=== PATIENT | female | born 1980 | race Hispanic/Latino ===

== ENCOUNTER 2017-09-26 21:00 | Emergency (ER) | payer MEDICAID ==
[2017-09-26 21:38] LABS: APPEARANCE,URINE Clear (CLEAR); BILIRUBIN,URINE Negative (NEGATIVE); COLOR,URINE Yellow (YELLOW); GLUCOSE, URINE (UA) Negative (NEGATIVE); KETONES,URINE Negative (NEGATIVE); LEUKOCYTE ESTERASE ,URINE Negative (NEGATIVE); NITRATE,URINE Negative (NEGATIVE); OCCULT BLOOD,URINE Negative (NEGATIVE); PH,URINE 6.5 (5.0-8.0); PROTEIN,URINE Negative (NEGATIVE); UROBILINOGEN,URINE 0.2 mg/dL (0.2-1.0)
== END 2017-09-26 22:08 | disposition home or self-care (01) ==
LOC: EDH 21:00
DX: O34.81 Maternal care for other abnormalities of pelvic organs, first trimester (principal); R10.9 Unspecified abdominal pain; Z88.0 Allergy status to penicillin; Z3A.08 8 weeks gestation of pregnancy
CPT/HCPCS: 36415; 76801; 81003; 84702

== ENCOUNTER 2018-01-15 08:29 | Observation (INO) | payer MEDICAID ==
[2018-01-15 09:31] LABS: APPEARANCE,URINE Cloudy (CLEAR); BILIRUBIN,URINE Negative (NEGATIVE); COLOR,URINE Yellow (YELLOW); GLUCOSE, URINE (UA) Negative (NEGATIVE); KETONES,URINE Negative (NEGATIVE); LEUKOCYTE ESTERASE ,URINE Large (NEGATIVE); NITRATE,URINE Negative (NEGATIVE); OCCULT BLOOD,URINE Negative (NEGATIVE); PH,URINE 6.5 (5.0-8.0); PROTEIN,URINE Trace (NEGATIVE); UROBILINOGEN,URINE 0.2 mg/dL (0.2-1.0)
[2018-01-15 09:44] LABS: RBC,URINE None Seen /HPF (0-1)
[2018-01-15 09:46] LABS: BACTERIA,URINE Rare /HPF (None Seen); MUCUS,URINE Few LPF (None Seen); SQUAMOUS EPITHELIAL CELL,UR Moderate /HPF (0-2)
[2018-01-15 09:55] LABS: RAPID GROUP A STREP NEGATIVE (NEGATIVE)
== END 2018-01-15 12:11 | disposition home or self-care (01) ==
LOC: EDH 08:29 → LDH 08:30
PROVIDERS: ADMIT Obstetrics & Gynecology; ATTEND Obstetrics & Gynecology
DX: O26.892 Other specified pregnancy related conditions, second trimester (principal); R10.31 Right lower quadrant pain; R10.32 Left lower quadrant pain; Z3A.23 23 weeks gestation of pregnancy
CPT/HCPCS: 81001; 87088; 87804 ×2; 87880; 99285; G0378 ×4

== ENCOUNTER 2018-03-09 13:21 | Emergency (ER) | payer MEDICAID ==
[2018-03-09 13:53] LABS: APPEARANCE,URINE Clear (CLEAR); BILIRUBIN,URINE Negative (NEGATIVE); COLOR,URINE Yellow (YELLOW); GLUCOSE, URINE (UA) 250 mg/dL (NEGATIVE); KETONES,URINE Trace mg/dL (NEGATIVE); LEUKOCYTE ESTERASE ,URINE Moderate (NEGATIVE); NITRATE,URINE Negative (NEGATIVE); OCCULT BLOOD,URINE Large (NEGATIVE); PH,URINE 7.5 (5.0-8.0); PROTEIN,URINE Negative (NEGATIVE)
[2018-03-09 14:04] LABS: BACTERIA,URINE Rare /HPF (None Seen); MUCUS,URINE Few LPF (None Seen); RBC,URINE 51-100 /HPF (0-1); SQUAMOUS EPITHELIAL CELL,UR Few /HPF (0-2)
== END 2018-03-09 14:54 | disposition home or self-care (01) ==
LOC: EDH 13:21
DX: O23.13 Infections of bladder in pregnancy, third trimester (principal); Z3A.31 31 weeks gestation of pregnancy; Z88.0 Allergy status to penicillin
CPT/HCPCS: 81001

== ENCOUNTER 2018-12-22 19:51 | Emergency (ER) | payer MEDICAID | END 2018-12-22 20:41 | disposition home or self-care (01) | LOC: EDH 19:51 | DX: S63.592A Other specified sprain of left wrist, initial encounter (principal); Z88.0 Allergy status to penicillin; X50.0XXA Overexertion from strenuous movement or load, initial encounter; Y93.89 Activity, other specified; Y92.89 Other specified places as the place of occurrence of the external cause; Y99.8 Other external cause status | CPT/HCPCS: 99281 ==

== ENCOUNTER 2022-01-12 18:23 | Emergency (ER) | payer MEDICAID ==
[~2022-01-12] VITALS: Ht 144.8 cm; Wt 63.5 kg
[2022-01-12 19:27] LABS: BASOPHILS % (AUTO) 0.5 % (0.0-5.0); EOSINOPHILS % (AUTO) 1.8 % (0.0-8.0); HEMATOCRIT 39.1 % (36-48); LYMPHOCYTES % (AUTO) 23.3 % (21.0-51.0); MEAN CORPUSCULAR HEMOGLOBIN 23.2 pg (27.0-33.0); MEAN CORPUSCULAR HGB CONC 32.2 g/dL (32.0-36.0); MEAN CORPUSCULAR VOLUME 72.1 fL (79-99); MONOCYTES % (AUTO) 6.1 % (3.0-13.0); NEUTROPHILS % (AUTO) 68.1 % (40.0-77.0); PLATELET COUNT (AUTO) 267 K/uL (130-400); RED BLOOD CELL COUNT(AUTO) 5.42 MIL/uL (4.00-5.50); RED CELL DISTRIBUTION WIDTH 15.3 % (11.0-15.5); WHITE BLOOD COUNT (AUTO) 6.5 K/uL (4.8-10.8)
[2022-01-12 19:39] LABS: CREATININE 0.8 mg/dL (0.5-1.5); POTASSIUM 3.5 mmol/L (3.5-5.1)
[2022-01-12 19:48] LABS: ALBUMIN 3.8 g/dL (3.5-5.0); TOTAL PROTEIN, SERUM 7.6 g/dL (6.0-8.3)
[2022-01-12] MEDS: DiphenhydrAMINE HCL 50 MG/ML VIAL IV ONE (19:58)
[2022-01-12] MEDS: KETOROLAC 15MG/ML VIAL (15MG/ML) IV ONE (20:00)
[2022-01-12] MEDS: PROCHLORPERAZINE 10MG/2ML INJ IV ONE (20:00)
[2022-01-12] MEDS ORDERED: FIORIT PO (21:20)
[2022-01-12 21:21] VITALS: BP 121/67
== END 2022-01-12 21:45 | disposition home or self-care (01) ==
LOC: EDH 18:23
DX: G43.909 Migraine, unspecified, not intractable, without status migrainosus (principal); E11.9 Type 2 diabetes mellitus without complications; E78.00 Pure hypercholesterolemia, unspecified; I10 Essential (primary) hypertension; Z79.1 Long term (current) use of non-steroidal anti-inflammatories (NSAID); Z88.0 Allergy status to penicillin
CPT/HCPCS: 99284; 70450; 96374; 96375; 84484; 80053; 85025; 36415; J1200; J0780; J1885

== ENCOUNTER 2022-09-17 21:51 | Emergency (ER) | payer MEDICAID ==
[~2022-09-17] VITALS: Ht 149.9 cm; Wt 65.3 kg
[~2022-09-17 21:51] MED LIST: FIORIT PO; IBUP-2070 PO; TAMS-1 PO
[2022-09-18 02:03] LABS: HCG,QUALITATIVE URINE NEGATIVE (NEGATIVE)
[2022-09-18 02:08] LABS: APPEARANCE,URINE CLOUDY (CLEAR); BILIRUBIN,URINE NEGATIVE (NEGATIVE); COLOR,URINE LIGHT-YELLOW (YELLOW); GLUCOSE, URINE (UA) >=1000 mg/dL (NEGATIVE); KETONES,URINE 5 mg/dL (NEGATIVE); LEUKOCYTE ESTERASE ,URINE NEGATIVE Leu/uL (NEGATIVE); NITRATE,URINE NEGATIVE (NEGATIVE); OCCULT BLOOD,URINE LARGE (NEGATIVE); PROTEIN,URINE 20 mg/dL (NEGATIVE); UROBILINOGEN,URINE 0.2 mg/dL (0.2-1.0)
[2022-09-18 02:11] LABS: MUCUS,URINE FEW LPF (None Seen); SQUAMOUS EPITHELIAL CELL,UR MOD /HPF (0-2)
[2022-09-18] MEDS: DiphenhydrAMINE HCL 50 MG/ML VIAL IV ONE (03:13)
[2022-09-18] MEDS: FAMOTIDINE 20MG VIAL IV ONE (03:13)
[2022-09-18] MEDS: DEXAMETHASONE SOD PHOSPHATE 4 MG/ML 1ML VIAL IV ONE (03:13)
[2022-09-18] MEDS: KETOROLAC 30MG VIAL (30MG/ML) IVP ONE (03:13)
[2022-09-18] MEDS: 0.9%NACL 1000ML 1,000 ML IV ONE (03:14)
[2022-09-18] MEDS: METOCLOPRAMIDE 10 MG/2 ML VIAL IVP ONE (03:14)
[2022-09-18 03:34] LABS: BASOPHILS % (AUTO) 0.6 % (0.0-5.0); EOSINOPHILS % (AUTO) 1.5 % (0.0-8.0); HEMATOCRIT 42.2 % (36-48); LYMPHOCYTES % (AUTO) 21.7 % (21.0-51.0); MEAN CORPUSCULAR HEMOGLOBIN 23.3 pg (27.0-33.0); MEAN CORPUSCULAR HGB CONC 31.8 g/dL (32.0-36.0); MEAN CORPUSCULAR VOLUME 73.3 fL (79-99); NEUTROPHILS % (AUTO) 69.8 % (40.0-77.0); PLATELET COUNT (AUTO) 298 K/uL (130-400); RED BLOOD CELL COUNT(AUTO) 5.76 MIL/uL (4.00-5.50); RED CELL DISTRIBUTION WIDTH 14.9 % (11.0-15.5); WHITE BLOOD COUNT (AUTO) 10.2 K/uL (4.8-10.8)
[2022-09-18 03:39] LABS: CREATININE 0.5 mg/dL (0.5-1.5); POTASSIUM 3.7 mmol/L (3.5-5.1)
[2022-09-18 03:44] LABS: ALBUMIN 3.5 g/dL (3.5-5.0); TOTAL PROTEIN, SERUM 7.8 g/dL (6.0-8.3)
[2022-09-18] MEDS ORDERED: SUMA25TA25 PO (03:51)
[2022-09-18] MEDS ORDERED: METO-296 PO (03:51)
[2022-09-18 04:36] VITALS: BP 128/74
== END 2022-09-18 04:47 | disposition home or self-care (01) ==
LOC: EDH 21:51
DX: G43.909 Migraine, unspecified, not intractable, without status migrainosus (principal); E11.9 Type 2 diabetes mellitus without complications; E78.00 Pure hypercholesterolemia, unspecified; I10 Essential (primary) hypertension; Z79.52 Long term (current) use of systemic steroids; Z88.0 Allergy status to penicillin
CPT/HCPCS: 99285; 80053; 85025; 81001; 81025; 36415; 96374; 96375; 70450; 96361; J1100; J1200; J7030; J1885; J2765; S0028; J3490

== ENCOUNTER 2022-09-22 20:26 | Emergency (ER) | payer MEDICAID ==
[~2022-09-22] VITALS: Ht 152.4 cm; Wt 65.8 kg
[~2022-09-22 20:26] MED LIST changes: +METO-296 PO; +SUMA25TA25 PO
[2022-09-22 20:30] VITALS: BP 158/85
[2022-09-22] MEDS ORDERED: GABAPENTIN 300 MG CAPSULE PO SCH (21:30)
[2022-09-22] MEDS ORDERED: CYCLOBENZAPRINE HCL 10 MG TABLET PO ONE (21:30)
[2022-09-22] MEDS ORDERED: IBUPROFEN 800 MG TAB PO ONE (21:30)
[2022-09-22] MEDS ORDERED: CYCL-309 PO (22:15)
[2022-09-22] MEDS ORDERED: IBUP-1493 PO (22:15)
[2022-09-22] MEDS ORDERED: GABA300C PO (22:15)
== END 2022-09-22 22:30 | disposition home or self-care (01) ==
LOC: EDH 20:26
DX: R51.9 Headache, unspecified (principal); M54.2 Cervicalgia; I10 Essential (primary) hypertension; E78.00 Pure hypercholesterolemia, unspecified; E11.9 Type 2 diabetes mellitus without complications; Z88.0 Allergy status to penicillin; Z79.899 Other long term (current) drug therapy
CPT/HCPCS: 72125

== ENCOUNTER 2023-12-27 17:53 | Emergency (ER) | payer BC, MEDICAID ==
[~2023-12-27] VITALS: Ht 152.4 cm; Wt 61.7 kg
[~2023-12-27 17:53] MED LIST changes: +CYCL-309 PO; +GABA300C PO; +IBUP-1493 PO
[2023-12-27] MEDS: ondanSETRON 4MG INJ IVP ONE (18:32)
[2023-12-27] MEDS: ketOROlac 30MG VIAL (30MG/ML) IVP ONE (18:32)
[2023-12-27] MEDS: acetaMINOPHEN 500 MG TABLET PO ONE (18:33)
[2023-12-27] MEDS: 0.9%NACL 1000ML 1,000 ML IV ONE (18:33)
[2023-12-27 18:37] LABS: BASOPHILS # (AUTO) 0.03 K/uL (0.00-0.20); BASOPHILS % (AUTO) 0.3 % (0.0-5.0); EOSINOPHILS # (AUTO) 0.03 K/uL (0.00-0.70); EOSINOPHILS % (AUTO) 0.3 % (0.0-8.0); HEMATOCRIT 45.4 % (36-48); IMMATURE GRANULOCYTE ABSOLUTE 0.04 K/uL (0-1); LYMPHOCYTES # (AUTO) 1.8 K/uL (1.0-4.8); LYMPHOCYTES % (AUTO) 17.1 % (21.0-51.0); MEAN CORPUSCULAR HEMOGLOBIN 23.5 pg (27.0-33.0); MEAN CORPUSCULAR HGB CONC 31.9 g/dL (32.0-36.0); MEAN CORPUSCULAR VOLUME 73.5 fL (79-99); MONOCYTES # (AUTO) 0.6 K/uL (0.1-1.0); MONOCYTES % (AUTO) 5.8 % (3.0-13.0); NEUTROPHILS # (AUTO) 7.8 K/uL (1.8-7.7); NEUTROPHILS % (AUTO) 76.1 % (40.0-77.0); PLATELET COUNT (AUTO) 279 K/uL (130-400); RED BLOOD CELL COUNT(AUTO) 6.18 MIL/uL (4.00-5.50); RED CELL DISTRIBUTION WIDTH 16.2 % (11.0-15.5); WHITE BLOOD COUNT (AUTO) 10.3 K/uL (4.8-10.8)
[2023-12-27 18:47] LABS: CREATININE 0.6 mg/dL (0.5-1.0); POTASSIUM 3.7 mmol/L (3.5-5.1)
[2023-12-27 19:06] LABS: APPEARANCE,URINE TURBID (CLEAR); BILIRUBIN,URINE NEGATIVE (NEGATIVE); COLOR,URINE LIGHT-ORANGE (YELLOW); GLUCOSE, URINE (UA) >=1000 mg/dL (NEGATIVE); KETONES,URINE NEGATIVE (NEGATIVE); LEUKOCYTE ESTERASE ,URINE 500 Leu/uL (NEGATIVE); NITRATE,URINE NEGATIVE (NEGATIVE); OCCULT BLOOD,URINE SMALL (NEGATIVE); PROTEIN,URINE 10 mg/dL (NEGATIVE); UROBILINOGEN,URINE 0.2 mg/dL (0.2-1.0)
[2023-12-27 19:09] LABS: ADD UA MICROSCOPIC YES
[2023-12-27 19:11] LABS: MUCUS,URINE FEW LPF (None Seen); RBC,URINE TNTC /HPF (0-1); SQUAMOUS EPITHELIAL CELL,UR FEW /HPF (0-2); UNCLASSIFIED CRYSTAL 2 /HPF (None Seen); WBC CLUMP FEW /HPF (0-1); WBC,URINE 51-100 /HPF (0-1); YEAST,URINE BUDDING MOD /HPF (None Seen)
[2023-12-27] MEDS ORDERED: tamSULOsin HCL 0.4 MG CAP.ER.24H PO SCH (20:00)
[2023-12-27] MEDS ORDERED: TAMS-1 PO (20:05)
[2023-12-27] MEDS ORDERED: IBUP-2077 PO (20:05)
[2023-12-27] MEDS ORDERED: NITR100C4 PO (20:05)
[2023-12-27 20:35] VITALS: BP 110/66; PULSE 74; RESP 18; TEMP 98.6; O2SAT 100
== END 2023-12-27 20:44 | disposition home or self-care (01) ==
LOC: EDH 17:53
DX: N20.0 Calculus of kidney (principal); N39.0 Urinary tract infection, site not specified; E11.65 Type 2 diabetes mellitus with hyperglycemia; E87.8 Other disorders of electrolyte and fluid balance, not elsewhere classified; E78.00 Pure hypercholesterolemia, unspecified; I10 Essential (primary) hypertension; G43.909 Migraine, unspecified, not intractable, without status migrainosus; Z87.442 Personal history of urinary calculi; Z88.0 Allergy status to penicillin; Z79.899 Other long term (current) drug therapy
CPT/HCPCS: 99284; 74176; 96374; 96361; 96375; 80048; 85025; 87086 ×2; 87186; 81001; 36415; J7030; J2405; J1885